=== PATIENT | female | born 1995 | race African-American/Black ===

== ENCOUNTER 2017-03-17 23:41 | Emergency (ER) | payer SELFPAY ==
[2017-03-18 00:32] LABS: Hematocrit 42.8 % (36.0-47.0); Mean Platelet Volume 7.4 fL (7.4-10.4); Red Blood Cell (RBC) Count 4.91 mill/uL (4.00-5.20); White Blood Cell (WBC) Count 6.1 thou/uL (4.8-10.8)
[2017-03-18 00:40] LABS: ALT (SGPT) 11 U/L (8-55); AST (SGOT) 13 U/L (5-34); Alkaline Phosphatase 60 U/L (40-150); Anion Gap 12 mmol/L (10-20); BUN (Urea Nitrogen) 12 mg/dL (7.0-18.7); Bilirubin, Total 0.3 mg/dL (0.2-1.2); Calc. Creatinine Clearance 0 mL/min (70-130); Calcium 9.5 mg/dL (7.8-10.44); Carbon Dioxide 26 mmol/L (22-29); Chloride 105 mmol/L (98-107); Estimated GFR-MDRD Greater than 90; Globulin 4.1 g/dL (2.4-3.5); Protein, Total 8.3 g/dL (6.0-8.3)
[2017-03-18 00:46] LABS: Band 4 % (5-11); Neutrophil 35 % (31-61)
--- NOTE | 2017-03-18 07:15 | RAD ---
PORTABLE AP CHEST: Date: 03/18/17 HISTORY: Lightheadedness. Nausea. FINDINGS: Cardiac silhouette and pulmonary vasculature are within normal limits. Lungs are clear. Osseous stru ctures are intact. IMPRESSION: No acute cardiopulmonary process. POS: [facility]
== END 2017-03-18 02:23 | disposition home or self-care (01) ==
LOC: ERS 23:41
DX: E86.0 Dehydration (principal); R55 Syncope and collapse
CPT/HCPCS: 36416; 71010; 80053; 84703; 85025; 93005; 96360

== ENCOUNTER 2017-04-04 01:12 | Emergency (ER) | payer BC, SELFPAY | END 2017-04-04 01:41 | disposition home or self-care (01) | LOC: ERS 01:12 | DX: S76.911A Strain of unspecified muscles, fascia and tendons at thigh level, right thigh, initial encounter (principal); S70.12XA Contusion of left thigh, initial encounter; X50.3XXA Overexertion from repetitive movements, initial encounter; Y99.0 Civilian activity done for income or pay | CPT/HCPCS: 99283 ==

== ENCOUNTER 2017-05-29 02:05 | Emergency (ER) | payer BC ==
[2017-05-29] MEDS ORDERED: Acetaminophen 500 MG TAB ONE (03:26)
== END 2017-05-29 03:30 | disposition home or self-care (01) ==
LOC: ERS 02:05
DX: J06.9 Acute upper respiratory infection, unspecified (principal)
CPT/HCPCS: 99283

== ENCOUNTER 2017-06-01 01:50 | Emergency (ER) | payer BC, OTHER ==
--- NOTE | 2017-06-01 07:50 | RAD ---
LEFT FOOT 3 VIEWS: HISTORY: Injury, left foot pain. FINDINGS: No fracture or dislocation is identified. POS: [facility]
--- NOTE | 2017-06-01 07:56 | RAD ---
RIGHT HAND 3 VIEWS: HISTORY: Injury, right hand pain. FINDINGS/IMPRESSION: No fracture or dislocation is seen. POS: [facility]
== END 2017-06-01 03:08 | disposition home or self-care (01) ==
LOC: ERS 01:50
DX: S92.315A Nondisplaced fracture of first metatarsal bone, left foot, initial encounter for closed fracture (principal); V47.6XXA Car passenger injured in collision with fixed or stationary object in traffic accident, initial encounter; W22.12XA Striking against or struck by front passenger side automobile airbag, initial encounter

== ENCOUNTER 2017-09-11 21:13 | Emergency (ER) | payer BC, OTHER ==
[2017-09-11 21:52] LABS: #Basophils 0.1 thou/uL (0.0-0.2); #Lymphocytes 2.9 thou/uL (1.20-3.40); #Monocytes 0.4 thou/uL (0.11-0.59); #Neutrophils 2.7 thou/uL (1.40-6.50); %Eosinophils 0.3 % (0.0-10.0); %Lymphocytes 47.5 % (21.0-51.0); %Monocytes 6.8 % (0.0-10.0); %Neutrophils 44.4 % (42.0-75.0); Hemoglobin 12.8 g/dL (12.0-16.0); Mean Corpuscular HGB CONC 33.1 g/dL (32.0-36.0); Mean Corpuscular Hemoglobin 28.5 pg (27.0-31.0); Mean Platelet Volume 6.9 fL (7.4-10.4); Platelet Count 301 thou/uL (130-400); RBC Distribution Width 12.5 % (11.5-14.5); Red Blood Cell (RBC) Count 4.51 mill/uL (4.20-5.40); White Blood Cell (WBC) Count 6.2 thou/uL (4.8-10.8)
[2017-09-11 22:12] LABS: ALT (SGPT) 13 U/L (8-55); AST (SGOT) 13 U/L (5-34); Albumin 4.2 g/dL (3.5-5.0); Alkaline Phosphatase 54 U/L (40-150); Anion Gap 12 mmol/L (10-20); BUN (Urea Nitrogen) 9 mg/dL (7.0-18.7); Bilirubin, Total 0.8 mg/dL (0.2-1.2); Calc. Creatinine Clearance 0 mL/min (70-130); Calcium 9.2 mg/dL (7.8-10.44); Carbon Dioxide 25 mmol/L (22-29); Chloride 105 mmol/L (98-107); Estimated GFR-MDRD Greater than 90; Globulin 3.4 g/dL (2.4-3.5); Glucose 107 mg/dL (70-105); Potassium 3.8 mmol/L (3.5-5.1); Protein, Total 7.6 g/dL (6.0-8.3); Sodium 138 mmol/L (136-145)
[2017-09-11 22:47] LABS: Pregnancy Test - Urine (BHCG) Negative (Negative); Pregu Control Background? CLEAR/WHITE (CLR/WHITE); Pregu Control Bar Appear? YES (CONTROL BAR); Specific Gravity 1.029 (1.002-1.036)
--- NOTE | 2017-10-31 11:47 | EKG ---
Test Reason : Blood Pressure : / mmHG Vent. Rate : 064 BPM Atrial Rate : 064 BPM P-R Int : 126 ms QRS Dur : 092 ms QT Int : 386 ms P-R-T Axes : 059 048 041 degrees QTc Int : 398 ms Sinus rhythm with Premature atrial complexes Cannot rule out Anterior infarct , age undetermined Abnormal ECG Confirmed by JONATHAN REYNOLDS ([id number]), acquisition editor YUNIOR GRADY ([id number]) on 10/31/2017 11:46:56 AM Referred By: Confirmed By:JONATHAN REYNOLDS
== END 2017-09-11 23:19 | disposition home or self-care (01) ==
LOC: ERS 21:13
DX: E86.0 Dehydration (principal)
CPT/HCPCS: 36415; 80053; 81025; 85025; 93005

== ENCOUNTER 2017-12-02 21:15 | Emergency (ER) | payer BC ==
[2017-12-02 21:45] LABS: Bilirubin Negative (Negative); Blood, Urine Negative (Negative); Clarity CLOUDY (Clear); Glucose, Urine (Dipstick) Negative (Negative); Leukocyte Trace (Negative); Nitrite Negative (Negative); Pregnancy Test - Urine (BHCG) Negative (Negative); Pregu Control Background? CLEAR/WHITE (CLR/WHITE); Pregu Control Bar Appear? YES (CONTROL BAR); Protein, Urine (Dipstick) Negative (Neg-Trace); Specific Gravity 1.015 (1.002-1.036); Specific Gravity, Urine 1.015 (1.002-1.036); Urobilinogen 0.2 mg/dL (0.2-1.0); pH, Urine 6.5 (5.0-9.0)
[2017-12-02 21:47] LABS: Bacteria/HPF None Seen HPF (None Seen); Hyaline Casts/LPF 0-3 HYALINE CAST LPF (0-3 Hyaline); Pathc Cast-AUWi Flag 0.43 (0-2.49)
[2017-12-02 21:57] LABS: RBC/HPF 0-3 HPF (0-3)
[2017-12-02 21:59] LABS: Crystals/HPF 2+ STARCH HPF (Negative)
[2017-12-02 22:44] LABS: #Basophils 0.1 thou/uL (0.0-0.2); #Lymphocytes 2.5 thou/uL (1.20-3.40); #Monocytes 0.5 thou/uL (0.11-0.59); %Basophils 0.9 % (0.0-1.0); %Eosinophils 0.5 % (0.0-10.0); %Lymphocytes 41.1 % (21.0-51.0); %Monocytes 7.8 % (0.0-10.0); %Neutrophils 49.8 % (42.0-75.0); Hemoglobin 12.4 g/dL (12.0-16.0); Mean Corpuscular HGB CONC 32.7 g/dL (32.0-36.0); Mean Corpuscular Hemoglobin 28.2 pg (27.0-31.0); Mean Corpuscular Volume 86.3 fL (78.0-98.0); Mean Platelet Volume 6.8 fL (7.4-10.4); Platelet Count 266 thou/uL (130-400); RBC Distribution Width 12.6 % (11.5-14.5); White Blood Cell (WBC) Count 6.1 thou/uL (4.8-10.8)
[2017-12-02 23:05] LABS: ALT (SGPT) 12 U/L (8-55); AST (SGOT) 13 U/L (5-34); Albumin 3.9 g/dL (3.5-5.0); Alkaline Phosphatase 55 U/L (40-150); Anion Gap 12 mmol/L (10-20); BUN (Urea Nitrogen) 6 mg/dL (7.0-18.7); Bilirubin, Total 0.4 mg/dL (0.2-1.2); Calc. Creatinine Clearance 0 mL/min (70-130); Calcium 9.5 mg/dL (7.8-10.44); Carbon Dioxide 26 mmol/L (22-29); Chloride 105 mmol/L (98-107); Estimated GFR-MDRD Greater than 90; Globulin 3.2 g/dL (2.4-3.5); Glucose 104 mg/dL (70-105); Lipase 17 U/L (8-78); Potassium 4.5 mmol/L (3.5-5.1); Protein, Total 7.1 g/dL (6.0-8.3); Sodium 138 mmol/L (136-145)
--- NOTE | 2017-12-02 23:19 | ULT ---
ULTRASOUND GALLBLADDER RIGHT UPPER QUADRANT: 12/02/17 HISTORY: Abdominal pain. COMPARISON: None. FINDINGS: The visualized portion of the pancreas is unremarkable. Hepatic echotexture appears normal. Portal ve in is patent with antegrade flow. Liver measures 17 cm in length. Right kidney measures 10 x 4.3 x 4.5 cm without mass, hydronephrosis or abnormal calcifications. Gallbladder wall thickness is normal. No cholelithiasis. Common bile duct is normal. Portal vein is patent. IMPRESSION: Normal exam. POS: [facility]
== END 2017-12-02 22:36 | disposition home or self-care (01) ==
LOC: ERS 21:15
DX: R51 Headache (principal); R10.11 Right upper quadrant pain
CPT/HCPCS: 36415; 76705; 80053; 81003; 81015; 81025; 83690; 85025

== ENCOUNTER 2017-12-29 23:04 | Emergency (ER) | payer BC ==
[2017-12-30] MEDS ORDERED: Ondansetron ODT 4 MG TAB ONE (00:38)
[2017-12-30 00:54] LABS: #Basophils 0.1 thou/uL (0.0-0.2); #Eosinphils 0.1 thou/uL (0.0-0.7); #Lymphocytes 3.6 thou/uL (1.20-3.40); #Monocytes 0.8 thou/uL (0.11-0.59); %Basophils 1.1 % (0.0-1.0); %Eosinophils 0.7 % (0.0-10.0); %Lymphocytes 47.9 % (21.0-51.0); %Monocytes 10.3 % (0.0-10.0); %Neutrophils 40.1 % (42.0-75.0); Hemoglobin 12.3 g/dL (12.0-16.0); Mean Corpuscular HGB CONC 32.4 g/dL (32.0-36.0); Mean Corpuscular Hemoglobin 28.4 pg (27.0-31.0); Mean Corpuscular Volume 87.7 fL (78.0-98.0); Mean Platelet Volume 7.4 fL (7.4-10.4); Platelet Count 269 thou/uL (130-400); RBC Distribution Width 12.8 % (11.5-14.5); Red Blood Cell (RBC) Count 4.31 mill/uL (4.20-5.40); White Blood Cell (WBC) Count 7.5 thou/uL (4.8-10.8)
[2017-12-30] MEDS ORDERED: Morphine 10 MG/ML VIAL ONE (01:06)
[2017-12-30 01:12] LABS: BHCG - Serum Negative (NEGATIVE); Pregs Control Background? CLEAR/WHITE (CLR/WHITE); Pregs Control Bar Appear? YES (CONTROL BAR)
[2017-12-30 01:13] LABS: ALT (SGPT) 11 U/L (8-55); AST (SGOT) 11 U/L (5-34); Alkaline Phosphatase 54 U/L (40-150); Anion Gap 10 mmol/L (10-20); BUN (Urea Nitrogen) 9 mg/dL (7.0-18.7); Bilirubin, Total 0.4 mg/dL (0.2-1.2); Calc. Creatinine Clearance 0 mL/min (70-130); Calcium 9.3 mg/dL (7.8-10.44); Carbon Dioxide 27 mmol/L (22-29); Chloride 108 mmol/L (98-107); Estimated GFR-MDRD Greater than 90; Globulin 3.2 g/dL (2.4-3.5); Glucose 96 mg/dL (70-105); Lipase 17 U/L (8-78); Protein, Total 7.2 g/dL (6.0-8.3); Sodium 141 mmol/L (136-145)
[2017-12-30 01:28] LABS: Bilirubin Negative (Negative); Blood, Urine Negative (Negative); Clarity CLOUDY (Clear); Glucose, Urine (Dipstick) Negative (Negative); Leukocyte Moderate (Negative); Nitrite Negative (Negative); Protein, Urine (Dipstick) Negative (Neg-Trace); Specific Gravity, Urine 1.028 (1.002-1.036); pH, Urine 5.5 (5.0-9.0)
[2017-12-30 01:33] LABS: Bacteria/HPF Rare-Few HPF (None Seen); Hyaline Casts/LPF 0-3 HYALINE CAST LPF (0-3 Hyaline); Pathc Cast-AUWi Flag 0.29 (0-2.49); RBC/HPF 0-3 HPF (0-3)
== END 2017-12-30 02:43 | disposition home or self-care (01) ==
LOC: ERS 23:04
DX: N39.0 Urinary tract infection, site not specified (principal)
CPT/HCPCS: 36415; 80053; 81003; 81015; 83690; 84703; 85025; 96372; J2270; Q0162

== ENCOUNTER 2018-03-09 12:34 | Emergency (ER) | payer BC ==
[2018-03-09] MEDS ORDERED: Ketorolac Tromethamine 30 MG/ML VIAL ONE (12:55)
--- NOTE | 2018-03-09 13:19 | RAD ---
THREE VIEWS LEFT FOOT: Date: 03-09-18 Comparison: None. History: Injury, trauma, pain. FINDINGS: There is no displaced fracture or evidence of dislocation. No radiopaque foreign body or subcutaneous gas. IMPRESSION: No acute findings. POS: [facility]
== END 2018-03-09 13:38 | disposition home or self-care (01) ==
LOC: ERS 12:34
DX: S93.602A Unspecified sprain of left foot, initial encounter (principal); X58.XXXA Exposure to other specified factors, initial encounter
CPT/HCPCS: 96372; J1885

== ENCOUNTER 2018-03-19 15:11 | Emergency (ER) | payer BC ==
--- NOTE | 2018-03-19 16:46 | RAD ---
FRONTAL VIEW CHEST: 03/19/18 INDICATION: Cough. COMPARISON: 03/18/17. FINDINGS: There is no consolidation, effusion or discrete pneumothorax. Cardiac silhouette is normal in size. IMPRESSION: No focal consolidation. POS: [facility]
== END 2018-03-19 18:23 | disposition home or self-care (01) ==
LOC: ERS 15:11
DX: J06.9 Acute upper respiratory infection, unspecified (principal)
CPT/HCPCS: 71045; 87804

== ENCOUNTER 2018-09-07 20:04 | Emergency (ER) | payer BC | END 2018-09-07 21:43 | disposition home or self-care (01) | LOC: ERS 20:04 | DX: J06.9 Acute upper respiratory infection, unspecified (principal) | CPT/HCPCS: 87804; 99283 ==

== ENCOUNTER 2018-12-30 19:31 | Emergency (ER) | payer BC, SELFPAY ==
[2018-12-30] MEDS ORDERED: Ondansetron PF 4 MG/2 ML Vial ONE (19:50)
[2018-12-30 20:24] LABS: #Lymphocytes 2.8 thou/uL (1.20-3.40); #Monocytes 0.6 thou/uL (0.11-0.59); #Neutrophils 2.8 thou/uL (1.40-6.50); %Basophils 0.8 % (0.0-1.0); %Eosinophils 0.4 % (0.0-10.0); %Lymphocytes 44.2 % (21.0-51.0); %Monocytes 9.9 % (0.0-10.0); %Neutrophils 44.7 % (42.0-75.0); Hemoglobin 12.5 g/dL (12.0-16.0); Mean Corpuscular HGB CONC 32.9 g/dL (32.0-36.0); Mean Corpuscular Hemoglobin 28.6 pg (27.0-31.0); Mean Platelet Volume 7.3 fL (7.4-10.4); Platelet Count 275 thou/uL (130-400); RBC Distribution Width 12.6 % (11.5-14.5); Red Blood Cell (RBC) Count 4.37 mill/uL (4.20-5.40); White Blood Cell (WBC) Count 6.2 thou/uL (4.8-10.8)
[2018-12-30 20:49] LABS: ALT (SGPT) 20 U/L (8-55); AST (SGOT) 20 U/L (5-34); Alkaline Phosphatase 54 U/L (40-150); Anion Gap 11 mmol/L (10-20); BUN (Urea Nitrogen) 9 mg/dL (7.0-18.7); Bilirubin, Total 0.6 mg/dL (0.2-1.2); Calc. Creatinine Clearance 0 mL/min (70-130); Calcium 9.4 mg/dL (7.8-10.44); Carbon Dioxide 25 mmol/L (22-29); Chloride 106 mmol/L (98-107); Estimated GFR-MDRD Greater than 90; Globulin 3.5 g/dL (2.4-3.5); Glucose 82 mg/dL (70-105); Lipase 14 U/L (8-78); Potassium 4.3 mmol/L (3.5-5.1); Protein, Total 7.5 g/dL (6.0-8.3); Sodium 138 mmol/L (136-145)
[2018-12-30 21:17] LABS: Bilirubin Negative (Negative); Blood, Urine Negative (Negative); Clarity Turbid (Clear); Glucose, Urine (Dipstick) Normal (Negative); Leukocyte 250 Leu/uL (Negative); Mucous/LPF Rare LPF (<2+); Nitrite Negative (Negative); Pregnancy Test - Urine (BHCG) Negative (Negative); Pregu Control Background? CLEAR/WHITE (CLR/WHITE); Pregu Control Bar Appear? YES (CONTROL BAR); Protein, Urine (Dipstick) Negative (Neg-Trace); RBC/HPF 0-3 HPF (0-3); Specific Gravity 1.019 (1.002-1.036); WBC/HPF 21-50 HPF (0-3)
[2018-12-30] MEDS ORDERED: Ketorolac Tromethamine 30 MG/ML VIAL ONE (21:22)
[2018-12-30 21:24] LABS: Bacteria/HPF 2+ HPF (None Seen)
== END 2018-12-30 21:56 | disposition home or self-care (01) ==
LOC: ERS 19:31
DX: N39.0 Urinary tract infection, site not specified (principal); R51 Headache; R11.2 Nausea with vomiting, unspecified
CPT/HCPCS: 80053; 81003; 81015; 81025; 83690; 85025; 87086; 96361; 96374; 96375; J1885; J2405

== ENCOUNTER 2019-06-27 18:09 | Emergency (ER) | payer SELFPAY ==
[2019-06-27] MEDS ORDERED: Lidocaine 1% (PF) 30 ML VIAL ONE (20:32)
[2019-06-27] MEDS ORDERED: HYDROcodone/Acetaminophen 10/325 mg Tablet ONE (21:17)
== END 2019-06-27 21:27 | disposition home or self-care (01) ==
LOC: ERS 18:09
DX: L02.412 Cutaneous abscess of left axilla (principal)
CPT/HCPCS: 10060; J2001

== ENCOUNTER 2019-10-24 12:47 | Emergency (ER) | payer OTHER ==
[2019-10-24 13:28] LABS: #Lymphocytes 2.5 thou/uL (1.20-3.40); #Monocytes 0.5 thou/uL (0.11-0.59); #Neutrophils 3.5 thou/uL (1.40-6.50); %Basophils 0.6 % (0.0-1.0); %Eosinophils 0.6 % (0.0-10.0); %Lymphocytes 38.5 % (21.0-51.0); %Monocytes 7.9 % (0.0-10.0); %Neutrophils 52.5 % (42.0-75.0); Hemoglobin 12.4 g/dL (12.0-16.0); Mean Corpuscular HGB CONC 31.9 g/dL (32.0-36.0); Mean Corpuscular Volume 87.7 fL (78.0-98.0); Mean Platelet Volume 7.3 fL (7.4-10.4); Platelet Count 309 thou/uL (130-400); Red Blood Cell (RBC) Count 4.41 mill/uL (4.20-5.40); White Blood Cell (WBC) Count 6.6 thou/uL (4.8-10.8)
[2019-10-24 15:17] LABS: Bacteria/HPF None Seen HPF (None Seen); Bilirubin Negative (Negative); Blood, Urine Trace (Negative); Clarity Clear (Clear); Glucose, Urine (Dipstick) Normal (Negative); Leukocyte Negative Leu/uL (Negative); Nitrite Negative (Negative); Protein, Urine (Dipstick) Negative (Neg-Trace); RBC/HPF 0-3 HPF (0-3); Squamous Epithelial 0-3 HPF (0-3); Urobilinogen Normal mg/dL (Less than 2); WBC/HPF 0-3 HPF (0-3)
--- NOTE | 2019-10-24 15:17 | ULT ---
PELVIC ULTRASOUND INCLUDING TRANSABDOMINAL AND TRANSVAGINAL ULTRASOUND EXAMINATION: History: Pain FINDINGS: The uterus is minimally enlarged. There is a gestational sac seen within the endometrium with a pole and a yolk sac but no evidence for cardiac activity. Gestational age based on crown-rump length equals 6 weeks 1 day. Neither right or left ovaries are seen. No abnormal fluid collection wit hin the pelvis. IMPRESSION: Intrauterine gestational sac with a pole and a yolk sac but no evidence of cardiac activity. Correlate with serum HCGs. Consider short term follow up ultrasound to document viability. No c ardiac activity at this time. POS: [facility]
== END 2019-10-24 15:10 | disposition home or self-care (01) ==
LOC: ERS 12:47
DX: O20.0 Threatened abortion (principal); Z3A.01 Less than 8 weeks gestation of pregnancy
CPT/HCPCS: 36415; 76856; 81003; 81015; 84702; 85025; 86900; 86901; 87086

== ENCOUNTER 2019-10-28 17:17 | Emergency (ER) | payer OTHER ==
[2019-10-28 17:49] LABS: #Lymphocytes 2.7 thou/uL (1.20-3.40); #Monocytes 0.5 thou/uL (0.11-0.59); #Neutrophils 2.8 thou/uL (1.40-6.50); %Basophils 0.2 % (0.0-1.0); %Eosinophils 0.3 % (0.0-10.0); %Lymphocytes 44.9 % (21.0-51.0); %Monocytes 8.1 % (0.0-10.0); %Neutrophils 46.4 % (42.0-75.0); Hemoglobin 11.9 g/dL (12.0-16.0); Mean Corpuscular HGB CONC 31.7 g/dL (32.0-36.0); Mean Corpuscular Hemoglobin 27.7 pg (27.0-31.0); Mean Corpuscular Volume 87.6 fL (78.0-98.0); Mean Platelet Volume 7.1 fL (7.4-10.4); Platelet Count 322 thou/uL (130-400); White Blood Cell (WBC) Count 5.9 thou/uL (4.8-10.8)
[2019-10-28 18:09] LABS: Anion Gap 14 mmol/L (10-20); BUN (Urea Nitrogen) 5 mg/dL (7.0-18.7); Calc. Creatinine Clearance 0 mL/min (70-130); Calcium 9.3 mg/dL (7.8-10.44); Carbon Dioxide 24 mmol/L (22-29); Chloride 105 mmol/L (98-107); Estimated GFR-MDRD Greater than 90; Glucose 92 mg/dL (70-105); Potassium 3.6 mmol/L (3.5-5.1); Sodium 139 mmol/L (136-145)
--- NOTE | 2019-10-28 20:23 | ULT ---
PELVIC ULTRASOUND: 10/28/19 HISTORY: Patient reportedly six weeks with heavy vaginal bleeding. COMPARISON: 10/24/19 study. Real time imaging of the pelvis was obtained both transabdominally as well as with an endovaginal pro be. This shows a uterus measuring 11.4 cm in length. The endometrium is thickened and very heterogene ous in appearance. The gestational sac noted on the previous examination is not visualized on this st udy. The right ovary is not visualized. The left ovary is normal in appearance. DOPPLER EVALUATION WITH SPECTRAL ANALYSIS: Normal flow is shown to the left ovary. IMPRESSION: Very thickened heterogeneous endometrium. The gestational sac is no longer identified. POS: [facility]
== END 2019-10-28 20:40 | disposition home or self-care (01) ==
LOC: ERS 17:17
DX: O03.4 Incomplete spontaneous abortion without complication (principal)
CPT/HCPCS: 36415; 76856; 80048; 84702; 85025; 86900; 86901

== ENCOUNTER 2020-02-03 01:21 | Emergency (ER) | payer BC, OTHER ==
[2020-02-03 01:45] LABS: Bacteria/HPF 1+ HPF (None Seen); Bilirubin Negative (Negative); Blood, Urine Negative (Negative); Clarity Clear (Clear); Glucose, Urine (Dipstick) Normal (Negative); Ketone, Urine Negative (Negative); Leukocyte 25 Leu/uL (Negative); Nitrite Negative (Negative); Protein, Urine (Dipstick) Negative (Neg-Trace); RBC/HPF 0-3 HPF (0-3); Specific Gravity, Urine 1.018 (1.002-1.036); Urobilinogen Normal mg/dL (Less than 2); WBC/HPF 0-3 HPF (0-3)
[2020-02-03 01:46] LABS: Pregnancy Test - Urine (BHCG) Negative (Negative); Pregu Control Background? CLEAR/WHITE (CLR/WHITE); Pregu Control Bar Appear? YES (CONTROL BAR); Specific Gravity 1.018 (1.002-1.036)
== END 2020-02-03 01:58 | disposition home or self-care (01) ==
LOC: ERS 01:21
DX: N39.0 Urinary tract infection, site not specified (principal)
CPT/HCPCS: 81003; 81015; 81025; 99283

== ENCOUNTER 2020-03-19 22:27 | Emergency (ER) | payer BC, OTHER ==
[2020-03-19 23:56] LABS: Bilirubin Negative (Negative); Blood, Urine Negative (Negative); Clarity Clear (Clear); Glucose, Urine (Dipstick) Normal (Negative); Ketone, Urine Negative (Negative); Leukocyte Negative Leu/uL (Negative); Nitrite Negative (Negative); Protein, Urine (Dipstick) Negative (Neg-Trace); Specific Gravity, Urine 1.018 (1.002-1.036); Urobilinogen Normal mg/dL (Less than 2)
[2020-03-19 23:57] LABS: Pregnancy Test - Urine (BHCG) POSITIVE (Negative); Pregu Control Background? CLEAR/WHITE (CLR/WHITE); Pregu Control Bar Appear? YES (CONTROL BAR); Specific Gravity 1.018 (1.002-1.036)
[2020-03-20 00:29] LABS: Hemoglobin 11.3 g/dL (12.0-16.0); Mean Corpuscular HGB CONC 33.5 g/dL (32.0-36.0); Mean Corpuscular Hemoglobin 28.1 pg (27.0-31.0); Mean Corpuscular Volume 83.7 fL (78.0-98.0); Mean Platelet Volume 7.7 fL (7.4-10.4); Platelet Count 305 thou/uL (130-400); RBC Distribution Width 14.2 % (11.5-14.5); Red Blood Cell (RBC) Count 4.02 mill/uL (4.20-5.40); White Blood Cell (WBC) Count 6.3 thou/uL (4.8-10.8)
[2020-03-20 00:49] LABS: Anion Gap 12 mmol/L (10-20); BUN (Urea Nitrogen) 6 mg/dL (7.0-18.7); Calc. Creatinine Clearance 0 mL/min (70-130); Calcium 9.3 mg/dL (7.8-10.44); Carbon Dioxide 24 mmol/L (22-29); Chloride 108 mmol/L (98-107); Estimated GFR-MDRD Greater than 90; Glucose 98 mg/dL (70-105); Potassium 4.6 mmol/L (3.5-5.1); Sodium 139 mmol/L (136-145)
[2020-03-20 00:50] LABS: Band 4 % (5-11); Hypochromia SLIGHT = 6-15 cells (100X) (0-5/hpf); Lymphocytes 59 % (21-51); MDiff Complete? YES; Monocytes 4 % (0-10); Neutrophil 33 % (42-75); Platelet Morphology Comment Appears Adequate
--- NOTE | 2020-03-20 08:27 | ULT ---
PRELIMINARY REPORT/[facility]/EMERGENCY AFTER HOURS PROCEDURE: EXAM: US Obstetrical, Complete <14 weeks CLINICAL HISTORY: HX: CRAMPING, +PREG. SEE NOTES ON LAST IMAGE. THANKS TECHNIQUE: Transvaginal imaging of the maternal pelvis and a <14 week gestation with image documentation. COMPARISON: None provided. FINDINGS: GESTATION: An intrauterine gestational sac measures 7.9 mm corresponding to 5 weeks 4 days. A yolk sac is noted with no evidence for pole or heartbeat at this time UTERUS: Unremarkable. No myometrial mass. Measures 10.6 x 6.0 x 6.4 cm CERVIX: Closed. Unremarkable. OVARIES: Unremarkable. No mass. The RIGHT side measures 2.5 x 1.7 x 2.3 cm and flow was difficult to establis h due to posterior positioning. The LEFT side measures 4.4 x 3.6 x 3.1 cm and demonstrates a 2.4 x 2 .0 x 1.9 cm cyst FREE FLUID: Mild free fluid. IMPRESSION: Early intrauterine gestation. Flow was difficult to establish in the RIGHT ovary due to posterior po sitioning and follow-up ultrasound is suggested ELECTRONICALLY SIGNED BY: Prabhakar Eid MD Mar 20, 2020 12:41:34 AM CDT This report is intended for review by the ordering physician only, in accordance of law. If you recei ve this report in error, please call [facility] at [phone]. FINAL REPORT EMERGENCY AFTER HOURS TRANSVAGINAL PELVIC ULTRASOUND WITH DOPPLER: IMPRESSION: I agree with the preliminary interpretation given by [facility]. POS: [facility]
== END 2020-03-20 01:05 | disposition home or self-care (01) ==
LOC: ERS 22:27
DX: O99.891 Other specified diseases and conditions complicating pregnancy (principal); R10.30 Lower abdominal pain, unspecified; Z3A.01 Less than 8 weeks gestation of pregnancy
CPT/HCPCS: 36415; 76856; 80048; 81003; 81025; 84702; 85025

== ENCOUNTER 2020-08-24 09:30 | Outpatient (CLI) | payer OTHER | END 2020-08-24 09:31 | disposition home or self-care (01) | LOC: BICULT 09:30 | PROVIDERS: ATTEND Family Medicine | DX: O09.892 Supervision of other high risk pregnancies, second trimester (principal); Z3A.28 28 weeks gestation of pregnancy | CPT/HCPCS: 76805 ==

== ENCOUNTER 2020-09-22 16:10 | Emergency (ER) | payer OTHER | END 2020-09-22 17:42 | disposition short-term general hospital (02) | LOC: ERS 16:10 | DX: O60.03 Preterm labor without delivery, third trimester (principal); O99.891 Other specified diseases and conditions complicating pregnancy; R03.0 Elevated blood-pressure reading, without diagnosis of hypertension; Z3A.32 32 weeks gestation of pregnancy | CPT/HCPCS: 99284 ==

== ENCOUNTER 2020-10-30 22:58 | Emergency (ER) | payer OTHER, BC ==
[2020-10-30 23:41] LABS: #Basophils 0.1 thou/uL (0.0-0.2); #Lymphocytes 2.6 thou/uL (1.20-3.40); #Monocytes 0.5 thou/uL (0.11-0.59); #Neutrophils 4.6 thou/uL (1.40-6.50); %Basophils 0.8 % (0.0-1.0); %Eosinophils 0.2 % (0.0-10.0); %Lymphocytes 33.2 % (21.0-51.0); %Monocytes 6.9 % (0.0-10.0); %Neutrophils 58.9 % (42.0-75.0); Hemoglobin 11.1 g/dL (12.0-16.0); Mean Corpuscular HGB CONC 32.4 g/dL (32.0-36.0); Mean Corpuscular Hemoglobin 27.4 pg (27.0-31.0); Mean Corpuscular Volume 84.4 fL (78.0-98.0); Mean Platelet Volume 7.4 fL (7.4-10.4); Platelet Count 342 thou/uL (130-400); RBC Distribution Width 13.3 % (11.5-14.5); Red Blood Cell (RBC) Count 4.05 mill/uL (4.20-5.40); White Blood Cell (WBC) Count 7.7 thou/uL (4.8-10.8)
[2020-10-31 00:04] LABS: ALT (SGPT) 13 U/L (8-55); AST (SGOT) 15 U/L (5-34); Albumin 3.3 g/dL (3.5-5.0); Alkaline Phosphatase 150 U/L (40-110); Anion Gap 11 mmol/L (10-20); BUN (Urea Nitrogen) 8 mg/dL (7.0-18.7); Bilirubin, Total 0.6 mg/dL (0.2-1.2); Calc. Creatinine Clearance 0 mL/min (70-130); Calcium 9.1 mg/dL (7.8-10.44); Carbon Dioxide 23 mmol/L (22-29); Chloride 107 mmol/L (98-107); Globulin 3.4 g/dL (2.4-3.5); Glucose 116 mg/dL (70-105); Potassium 3.9 mmol/L (3.5-5.1); Protein, Total 6.7 g/dL (6.0-8.3); Sodium 137 mmol/L (136-145)
== END 2020-10-31 00:07 | disposition short-term general hospital (02) ==
LOC: ERS 22:58
DX: O99.891 Other specified diseases and conditions complicating pregnancy (principal); R10.30 Lower abdominal pain, unspecified; Z3A.37 37 weeks gestation of pregnancy
CPT/HCPCS: 80053; 85025; 86900; 86901; 99284

== ENCOUNTER 2021-03-25 19:31 | Emergency (ER) | payer OTHER, BC | END 2021-03-25 21:00 | disposition home or self-care (01) | LOC: ERS 19:31 | DX: L02.412 Cutaneous abscess of left axilla (principal) | CPT/HCPCS: 99283 ==

== ENCOUNTER 2021-05-28 19:35 | Emergency (ER) | payer OTHER ==
[2021-05-29 13:14] LABS: SARS-CoV-2 PCR by NAA DETECTED (NotDetected)
== END 2021-05-28 22:08 | disposition home or self-care (01) ==
LOC: ERS 19:35
DX: U07.1 COVID-19 (principal)
CPT/HCPCS: 99283; U0003; U0005

== ENCOUNTER 2022-01-01 14:50 | Emergency (ER) | payer OTHER ==
[2022-01-01 16:51] LABS: Bilirubin Negative (Negative); Blood, Urine Negative (Negative); Clarity Clear (Clear); Glucose, Urine (Dipstick) Normal (Negative); Ketone, Urine Negative (Negative); Leukocyte Negative Leu/uL (Negative); Nitrite Negative (Negative); Protein, Urine (Dipstick) 10 mg/dL (Neg-Trace); Specific Gravity, Urine 1.023 (1.002-1.036); Urobilinogen Normal mg/dL (Less than 2); pH, Urine 6.5 (5.0-9.0)
[2022-01-01 16:53] LABS: Pregnancy Test - Urine (BHCG) Negative (Negative); Pregu Control Background? CLEAR/WHITE (CLR/WHITE); Pregu Control Bar Appear? YES (CONTROL BAR); Specific Gravity 1.023 (1.002-1.036)
== END 2022-01-01 17:23 | disposition home or self-care (01) ==
LOC: ERS 14:50
DX: M54.50 Low back pain, unspecified (principal)
CPT/HCPCS: 81003; 81025; 99283

== ENCOUNTER 2022-01-31 16:44 | Emergency (ER) | payer MEDICAID, OTHER | END 2022-01-31 18:01 | disposition home or self-care (01) | LOC: ERS 16:44 | DX: J06.9 Acute upper respiratory infection, unspecified (principal) | CPT/HCPCS: 99283 ==

== ENCOUNTER 2022-05-14 01:51 | Emergency (ER) | payer OTHER ==
[2022-05-14 02:37] LABS: Bilirubin Negative (Negative); Blood, Urine Negative (Negative); Clarity Clear (Clear); Glucose, Urine (Dipstick) Normal (Negative); Ketone, Urine Negative (Negative); Leukocyte Negative Leu/uL (Negative); Nitrite Negative (Negative); Protein, Urine (Dipstick) 20 mg/dL (Neg-Trace); Specific Gravity, Urine 1.017 (1.002-1.036); Urobilinogen Normal mg/dL (Less than 2); pH, Urine 5.5 (5.0-9.0)
[2022-05-14 02:38] LABS: Pregnancy Test - Urine (BHCG) Negative (Negative); Pregu Control Background? CLEAR/WHITE (CLR/WHITE); Pregu Control Bar Appear? YES (CONTROL BAR); Specific Gravity 1.017 (1.002-1.036)
== END 2022-05-14 03:46 | disposition home or self-care (01) ==
LOC: ERS 01:51
DX: B34.9 Viral infection, unspecified (principal)
CPT/HCPCS: 81003; 81025; 99283

== ENCOUNTER 2022-05-30 00:50 | Emergency (ER) | payer OTHER | END 2022-05-30 03:02 | disposition left against medical advice (07) | LOC: ERS 00:50 | DX: Z53.21 Procedure and treatment not carried out due to patient leaving prior to being seen by health care provider (principal) ==

== ENCOUNTER 2024-05-03 14:09 | Emergency (ER) | payer SELFPAY ==
[2024-05-03 15:18] LABS: #Basophils Less than 0.03 10x3/uL (0.0-0.2); %Basophils 0.3 % (0.0-1.0); %Eosinophils 1.5 % (0.0-10.0); %Lymphocytes 47.6 % (21.0-51.0); %Monocytes 6.2 % (0.0-10.0); %Neutrophils 44.2 % (42.0-75.0); Hemoglobin 14.1 g/dL (12.0-16.0); Mean Corpuscular HGB CONC 32.8 g/dL (32.0-36.0); Mean Corpuscular Hemoglobin 28.1 pg (27.0-31.0); Mean Corpuscular Volume 85.8 fL (78.0-98.0); Mean Platelet Volume 9.6 fL (7.4-10.4); Platelet Count 305 10x3/uL (130-400); RBC Distribution Width 13.3 % (11.5-14.5); Red Blood Cell (RBC) Count 5.01 mill/uL (4.20-5.40)
[2024-05-03 15:26] LABS: BHCG - Serum Negative (NEGATIVE); Pregs Control Background? CLEAR/WHITE (CLR/WHITE); Pregs Control Bar Appear? YES (CONTROL BAR)
[2024-05-03] MEDS ORDERED: Ondansetron ODT 4 MG TAB ONE (15:33)
[2024-05-03 15:37] LABS: ALT (SGPT) 13 U/L (8-55); AST (SGOT) 13 U/L (5-34); Albumin 3.1 g/dL (3.5-5.0); Alkaline Phosphatase 52 U/L (40-110); Anion Gap 11 mmol/L (10-20); BUN (Urea Nitrogen) 9 mg/dL (7.0-18.7); Bilirubin, Total 0.4 mg/dL (0.2-1.2); Calc. Creatinine Clearance 0 mL/min (70-130); Calcium 8.7 mg/dL (7.8-10.44); Carbon Dioxide 25 mmol/L (22-29); Chloride 104 mmol/L (98-107); Estimated GFR 105; Globulin 3.7 g/dL (2.4-3.5); Glucose 193 mg/dL (70-105); Lipase 15 U/L (8-78); Potassium 4.2 mmol/L (3.5-5.1); Protein, Total 6.8 g/dL (6.0-8.3); Sodium 136 mmol/L (136-145)
[2024-05-03 16:19] LABS: Bacteria/HPF 2+ HPF (None Seen); Bilirubin Negative (Negative); Blood, Urine 1+ (Negative); CAUTI Indications for Culture Pelvic or flank pain; Clarity Clear (Clear); Glucose, Urine (Dipstick) Normal (Negative); Ketone, Urine Negative (Negative); Leukocyte Negative Leu/uL (Negative); Nitrite Negative (Negative); Protein, Urine (Dipstick) 10 mg/dL (Neg-Trace); RBC/HPF 0-3 HPF (0-3); Specific Gravity, Urine 1.022 (1.002-1.036); Squamous Epithelial 0-3 HPF (0-3); Urobilinogen Normal mg/dL (Less than 2); WBC/HPF 0-3 HPF (0-3); pH, Urine 5.5 (5.0-9.0)
[2024-05-03 16:20] LABS: Urine Culture Reflex No No
== END 2024-05-03 16:11 | disposition home or self-care (01) ==
LOC: ERS 14:09
DX: R11.10 Vomiting, unspecified (principal); R19.7 Diarrhea, unspecified; R73.9 Hyperglycemia, unspecified
CPT/HCPCS: 36415; 80053; 81001; 83690; 84703; 85025; 99283; Q0162